=== PATIENT | female | born 1995 | race American Indian/Alaskan Native ===

== ENCOUNTER 2019-04-12 06:25 | Emergency (ER) | payer SELFPAY ==
[2019-04-12 06:30] VITALS: BP 132/78
--- NOTE | 2019-04-12 09:30 | Emergency Department Report ---
ED Fever HPI - General Chief Complaint: Headache Stated Complaint: CHILLS/HEADACHE/BODY PAIN Time Seen by Provider: 04/12/19 09:23 Source: patient Exam Limitations: no limitations - History of Present Illness Initial Comments: Ms. Atkinson is a 23-year-old female history of Graves' disease who presents with headache muscle aches fever chills. Systems at home have the flu. Denies sore throat. Mild nonproductive cough. Mild frontal dull headache. Associated Symptoms: cough, headache, muscle aches ED Review of Systems ROS: Stated complaint: CHILLS/HEADACHE/BODY PAIN Other details as noted in HPI Constitutional: chills, fever, malaise ENT: denies: throat pain Respiratory: cough. denies: shortness of breath Cardiovascular: denies: chest pain Gastrointestinal: denies: abdominal pain, nausea, vomiting Musculoskeletal: myalgia Neurological: headache ED Past Medical Hx - Past Medical History Previous Medical History?: Yes Additional medical history: Graves disease - Surgical History Past Surgical History?: No - Social History Smoking Status: Never Smoker - Medications Home Medications: Home Medications Medication Instructions Recorded Confirmed Last Taken Type Oseltamivir [Tamiflu] 75 mg PO BID 5 Days #10 cap 04/12/19 Unknown Rx ED Physical Exam - General Limitations: No Limitations General appearance: alert, in no apparent distress, other (well-appearing nontoxic) - Head Head exam: Present: atraumatic, normocephalic - Eye Eye exam: Present: normal appearance - ENT ENT exam: Present: normal orophraynx, mucous membranes moist - Neck Neck exam: Present: normal inspection, full ROM - Respiratory Respiratory exam: Present: normal lung sounds bilaterally. Absent: respiratory distress, wheezes, rales, rhonchi - Cardiovascular Cardiovascular Exam: Present: regular rate, normal rhythm, normal heart sounds. Absent: systolic murmur, diastolic murmur, rubs, gallop - GI/Abdominal GI/Abdominal exam: Present: soft, normal bowel sounds. Absent: distended, tenderness, guarding, rebound - Extremities Exam Extremities exam: Present: normal inspection - Neurological Exam Neurological exam: Present: alert, oriented X3 - Psychiatric Psychiatric exam: Present: normal affect, normal mood - Skin Skin exam: Present: warm, dry, intact, normal color. Absent: rash ED Course Vital Signs 04/12/19 06:26 Temperature 99.3 F Pulse Rate 101 H Respiratory 20 Rate Blood Pressure 132/78 O2 Sat by Pulse 97 Oximetry ED Medical Decision Making - Medical Decision Making Clinical diagnosis influenza; no indication of pneumonia pharyngitis or meningitis and exam. Prescribed Tamiflu Critical care attestation.: If time is entered above; I have spent that time in minutes in the direct care of this critically ill patient, excluding procedure time. ED Disposition Clinical Impression: Influenza Disposition: DC-01 TO HOME OR SELFCARE Is pt being admited?: No Does the pt Need Aspirin: No Condition: Stable Instructions: Influenza (ED) Prescriptions: Oseltamivir [Tamiflu] 75 mg PO BID 5 Days #10 cap Referrals: PRIMARY CARE, [Primary Care Provider] - 3-5 Days Forms: Work/School Release Form(ED)
== END 2019-04-12 09:45 | disposition home or self-care (01) ==
LOC: ED 06:25
DX: J11.1 Influenza due to unidentified influenza virus with other respiratory manifestations (principal); E05.00 Thyrotoxicosis with diffuse goiter without thyrotoxic crisis or storm; Z79.899 Other long term (current) drug therapy
CPT/HCPCS: 99282

== ENCOUNTER 2021-03-26 16:31 | Emergency (ER) | payer SELFPAY | END 2021-03-26 16:35 | disposition left against medical advice (07) | LOC: ED 16:31 | DX: Z00.00 Encounter for general adult medical examination without abnormal findings (principal); Z53.21 Procedure and treatment not carried out due to patient leaving prior to being seen by health care provider ==